=== PATIENT | male | born 1975 | race Caucasian/White ===

== ENCOUNTER 2019-01-10 13:33 | Emergency (ER) | payer OTHER ==
[2019-01-10 13:50] VITALS: BP 122/75; PULSE 84; TEMP 98.5; BMI 25.8
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
[2019-01-10] MEDS ORDERED: IBUPROFEN 400 MG TABLET (FP) PO ONE ×2 (15:11→15:20)
== END 2019-01-10 15:23 | disposition home or self-care (01) ==
LOC: JER 13:33 → JERFT 13:33
PROC: 0HQFXZZ Repair Right Hand Skin, External Approach (ICD-10-PCS; principal; 2019-01-10)
DX: S61.411A Laceration without foreign body of right hand, initial encounter (principal); V43.52XA Car driver injured in collision with other type car in traffic accident, initial encounter; Y93.89 Activity, other specified; Y92.410 Unspecified street and highway as the place of occurrence of the external cause
CPT/HCPCS: 73130-TC-RT-FY; 99281-25

== ENCOUNTER 2019-01-17 11:10 | Emergency (ER) | payer OTHER ==
[2019-01-17 11:15] VITALS: BP 133/77; PULSE 81; TEMP 98.2; BMI 25.8
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
== END 2019-01-17 12:30 | disposition home or self-care (01) ==
LOC: JERFT 11:10
DX: Z48.817 Encounter for surgical aftercare following surgery on the skin and subcutaneous tissue (principal); Z48.02 Encounter for removal of sutures
CPT/HCPCS: 99281-25